=== PATIENT | male | born 1995 | race Caucasian/White ===

== ENCOUNTER 2021-06-15 12:27 | Emergency (ER) | payer MEDICAID, SELFPAY ==
[2021-06-15 12:36] VITALS: BP 124/77; PULSE 92; RESP 18; TEMP 37; O2SAT 97; BMI 21.8
--- NOTE | 2021-06-15 12:55 | ECG_ITS ---
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
[2021-06-15 12:59] VITALS: BP 152/87; PULSE 90; RESP 16; TEMP 36.6; O2SAT 100
[2021-06-15 13:17] LABS: Add Urine Microscopic? NO; Charge for UA Resulting for Rev
[2021-06-15 13:30] LABS: Bilirubin Urine Neg (Negative); Blood Urine Neg (Negative); Glucose Urine UA Norm (Normal); Ketones Urine Negative (Negative); Leukocyte Esterase Urine Negative (Negative); Nitrate Urine Negative (Negative); Protein Urine Neg (Negative); Urine Appearance Clear (CLEAR); Urine Color Yellow (Yellow); Urobilinogen Urine 1 mg/dL (Negative); pH Urine 7 (5-7)
[2021-06-15 13:31] LABS: Amphetamines Screen Urine Negative (Negative); Barbiturates Screen Urine Negative (Negative); Benzodiazepines Screen Urine Negative (Negative); Cocaine Screen Urine Negative (Negative); Opiate Screen Urine Negative (Negative); PCP Screen Urine Negative (Negative); THC Screen Urine Negative (Negative)
[2021-06-15 13:33] LABS: Basophils # 0.1 10^3/uL (0.0-0.1); Eosinophils # 0.2 10^3/uL (0.0-0.8); Eosinophils % 2.5 %; Hematocrit 44.3 % (42.0-52.0); Hemoglobin 15.2 g/dL (11.7-16.6); Lymphocytes # 2.1 10^3/uL (0.8-4.8); Lymphocytes % 28.6 %; Mean Corpuscular HGB Conc 34.3 g/dL (30.0-36.0); Mean Corpuscular Hemoglobin 30.3 pg (28.0-34.0); Mean Corpuscular Volume 88.4 fl (80-94); Mean Platelet Volume 10.5 fL (7.4-10.4); Monocytes # 0.8 10^3/uL (0.2-0.9); Monocytes % 10.5 %; Neutrophils # 4.15 10^3/uL (1.8-7.7); Neutrophils % 57.1 %; Nucleated Red Blood Cells % 0 %; Platelet Count 304 10^3/cmm (130-400); Red Blood Count 5.01 10^6/uL (4.1-5.3); Red Cell Distribution Width 11.9 % (12.1-15.1); White Blood Count 7.3 10^3/uL (4.0-10.0)
[2021-06-15 13:37] LABS: SARS Covid-2 Antigen Negative (Negative)
--- NOTE | 2021-06-15 13:37 | PC.NURSE ---
Spoke with doctor who reports not to give NS bolus, it it held.
--- NOTE | 2021-06-15 13:38 | W.ED.PSYCH ---
HPI - Psych General: Chief Complaint: Psychiatric Symptoms Stated Complaint: MHE: SENT RICARDO/SUICIDE PREVENTION Time Seen by Provider: 06/15/21 12:55 History of Present Illness: HPI Narrative: Patient is a 18-year-old male with no significant medical or mental history. Recently discharged from long term. He is here with a history of suicidal ideations. Cording the patient he spoke to his mother this morning stating that he had been feeling suicidal over the last 4 months. But did not have any plans to harm himself or anyone else today. His mother contacted [facility] and the worker told the mother that if he was actively suicidal he needed to come to the emergency department. So he presented here Patient denies any active suicidal ideation. Is never attempted suicide is not take any drugs for any milled mental illness or other diagnoses. States he has mild ideations but no active plans according to him he thinks that the behavioral health worker was supposed to meet him here and help him get set up with therapy I spoke to the mental health worker who spoke to the mother this morning. She stated that she told the mother the patient needed to come here if he was actively suicidal. According to the mental health worker he is set up to start outpatient therapy the end of this month via his service officer. Again patient does not have any active suicidal or homicidal at thoughts no plan. Has recent fevers chills chest pain nausea vomiting diarrhea altered mental status or syncope Review of Systems General: Reports: 10 or more systems reviewed and unremarkable except in HPI and below Physical Exam Const: COMMON NORMALS: no acute distress, average body habitus and patient oriented x3 HENMT: COMMON NORMALS: normocephalic, atraumatic and hearing grossly normal bilaterally HEAD & SCALP: normocephalic and atraumatic Eye: COMMON NORMALS: Equal, round and reactive pupils present and EOMs intact bilaterally PUPIL: Yes Equal, round and reactive pupils present Resp: COMMON NORMALS: normal respiratory effort Cardio: COMMON NORMALS: regular rate and regular rhythm RATE: regular rate RHYTHM: regular rhythm GI: COMMON NORMALS: Normal to inspection, nondistended, normoactive bowel sounds present Extremity: COMMON NORMALS: normal to inspection and full ROM Neuro: COMMON NORMALS: patient oriented x3, CN's II-XII intact bilaterally, moves all extremities, no focal motor deficits, no sensory deficits noted and gait normal Psych: COMMON NORMALS: mental status grossly normal, Normal thought process present, cooperative, normal affect, speech normal, activity/motor behavior normal, denies hallucinations, denies homicidal ideation and denies suicidal ideation SPEECH: Yes normal speech MOOD & AFFECT: Yes euthymic mood THOUGHT PROCESS: Normal thought process present THOUGHT CONTENT: Yes Normal thought content present, No Suicidality present and No Homicidality present ATTENTION/CONCENTRATION: Yes attention grossly intact and Yes concentration grossly intact MEMORY/COGNITION: Yes memory grossly intact and Yes cognition grossly intact INSIGHT: Good insight present (Psych) JUDGEMENT: Good judgement present (Psych) Skin: COMMON NORMALS: no rashes or lesions noted GENERAL SKIN EXAM: no rashes or lesions noted Course ED course: Spoke to mental health worker. He states that he does have a plan in place for outpatient therapy. She also stated that he could come straight to behavioral health services during business hours to try to get into something sooner. I had a very long conversation with the patient stating that does sound like he does have a good plan in place in my medical opinion at this point he is not a threat to himself via suicide or threat to himself via homicide. Although this could certainly change and I did recommend strongly that if he does feel that he is in acute crisis or has any plans to harm himself needs to present to the emergency department. He did state that he does not have any current plans to harm himself or anybody else. Does not want to be hospitalized and I feel at this point he is appropriate for discharge tickly since we do have a plan in place. Patient has good judgment and insight and once again feel that he is appropriate for discharge Vital Signs: Vital signs: Vital Signs Temperature 98 F 06/15/21 12:59 Pulse Rate 90 06/15/21 12:59 Respiratory Rate 16 06/15/21 12:59 Blood Pressure 152/87 06/15/21 12:59 Pulse Oximetry 100 06/15/21 12:59 MDM - Psych MDM Narrative: Medical decision making narrative: Suicidality, depression, homicidality, Differential Diagnosis: Psych Differential Diagnosis: Likely acute psychosis, suicidal ideation, bipolar disorder, depression and acute anxiety Lab Data: Labs: Lab Results 06/15/21 06/15/21 06/15/21 Range/Units 13:08 13:10 13:10 WBC (4.0-10.0) 10^3/ uL RBC (4.1-5.3) 10^6/u L Hgb (11.7-16.6) g/dL Hct (42.0-52.0) % MCV (80-94) fl MCH (28.0-34.0) pg MCHC (30.0-36.0) g/dL RDW (12.1-15.1) % Plt Count (130-400) 10^3/c mm MPV (7.4-10.4) fL Neut % (Auto) % Lymph % (Auto) % [place] % (Auto) % Eos % (Auto) % Baso % (Auto) % Neut # (Auto) (1.8-7.7) 10^3/u L Lymph # (Auto) (0.8-4.8) 10^3/u L [place] # (Auto) (0.2-0.9) 10^3/u L Eos # (Auto) (0.0-0.8) 10^3/u L Baso # (Auto) (0.0-0.1) 10^3/u L Nucleated RBC % (a uto) % Nucleated RBCs # /100WBC Urine Color Yellow (Yellow) Urine Appearance Clear (CLEAR) Urine pH 7 (5-7) Ur Specific Gravit y 1.010 (1.005-1.030) Urine Protein Neg (Negative) Urine Glucose (UA) Norm (Normal) Urine Ketones Negative (Negative) Urine Blood Neg (Negative) Urine Nitrate Negative (Negative) Urine Bilirubin Neg (Negative) Urine Urobilinogen 1 H (Negative) mg/dL Ur Leukocyte April ase Negative (Negative) Urine Opiates Scre en Negative (Negative) ng/mL Ur Barbiturates Sc reen Negative (Negative) ng/mL Ur Phencyclidine S crn Negative (Negative) ng/mL Ur Amphetamines Sc reen Negative (Negative) ng/mL U Benzodiazepines Scrn Negative (Negative) ng/mL Urine Cocaine Scre en Negative (Negative) ng/mL U Marijuana (THC) Screen Negative (Negative) ng/mL SARS-CoV-2 Ag (Rap id) Negative (Negative) 06/15/21 Range/Units 13:20 WBC 7.3 (4.0-10.0) 10^3/ uL RBC 5.01 (4.1-5.3) 10^6/u L Hgb 15.2 (11.7-16.6) g/dL Hct 44.3 (42.0-52.0) % MCV 88.4 (80-94) fl MCH 30.3 (28.0-34.0) pg MCHC 34.3 (30.0-36.0) g/dL RDW 11.9 L (12.1-15.1) % Plt Count 304 (130-400) 10^3/c mm MPV 10.5 H (7.4-10.4) fL Neut % (Auto) 57.1 % Lymph % (Auto) 28.6 % [place] % (Auto) 10.5 % Eos % (Auto) 2.5 % Baso % (Auto) 1.0 % Neut # (Auto) 4.15 (1.8-7.7) 10^3/u L Lymph # (Auto) 2.1 (0.8-4.8) 10^3/u L [place] # (Auto) 0.8 (0.2-0.9) 10^3/u L Eos # (Auto) 0.2 (0.0-0.8) 10^3/u L Baso # (Auto) 0.1 (0.0-0.1) 10^3/u L Nucleated RBC % (a uto) 0 % Nucleated RBCs # 0.0 /100WBC Urine Color (Yellow) Urine Appearance (CLEAR) Urine pH (5-7) Ur Specific Gravit y (1.005-1.030) Urine Protein (Negative) Urine Glucose (UA) (Normal) Urine Ketones (Negative) Urine Blood (Negative) Urine Nitrate (Negative) Urine Bilirubin (Negative) Urine Urobilinogen (Negative) mg/dL Ur Leukocyte April ase (Negative) Urine Opiates Scre en (Negative) ng/mL Ur Barbiturates Sc reen (Negative) ng/mL Ur Phencyclidine S crn (Negative) ng/mL Ur Amphetamines Sc reen (Negative) ng/mL U Benzodiazepines Scrn (Negative) ng/mL Urine Cocaine Scre en (Negative) ng/mL U Marijuana (THC) Screen (Negative) ng/mL SARS-CoV-2 Ag (Rap id) (Negative) Discharge Plan Discharge Condition: Stable Prescriptions: No Action Tylenol 325 mg Tablet 325 mg PO QID PRN (Reason: Pain) RF: 0 Vitamin C 250 mg Tablet 250 mg PO DAILY RF: 0 Iron (ferrous sulfate) 325 mg (65 mg iron) Tablet 325 mg PO DAILY RF: 0 ibuprofen 200 mg Tablet 200 - 400 mg PO Q6H PRN (Reason: Pain/FEVER) RF: 0 Discharge Orders: Discharge ED (Routine); Ordered 06/15/21 Ordered By: Uli Eckert Discharge Activity: Resume usual activity Patient Instructions: Depression (ED) Activity Restrictions/Additional Instructions: Follow-up with your appointments for mental health services. You can also present yourself to [facility] during business hours. If you find that you have thoughts of harming yourself or others return to the emergency department or call 911 immediately Coding Level of Care Code ED Staff Toxicologist for Hiren Saavedra
[2021-06-15 14:01] LABS: Alanine Aminotransferase 12 U/L (0-41); Alkaline Phosphatase 70 IU/L (40-130); Anion Gap 15.7 (5-19); Aspartate Amino Transferase 16 U/L (0-40); Blood Urea Nitrogen 9 mg/dL (6-20); Calcium 9.4 mg/dL (8.5-10.5); Carbon Dioxide 27 mmol/L (22-29); Chloride 99 mmol/L (98-107); Glomerular Filtration Rate 115.1 mL/min (90-130); Glucose 90 mg/dL (65-115); Osmolality Calculated 284 mOsm/kg (285-295); Potassium 3.7 mmol/L (3.5-5.1); Sodium 138 mmol/L (136-145); Thyroid Stimulating Hormone 1.32 uIU/mL (0.27-4.20); Total Bilirubin 0.3 mg/dL (0.15-1.2)
--- NOTE | 2021-06-15 14:01 | PC.NURSE ---
Patient is discharged at this time and instructed to go to [facility] by Dr Sheth.
[2021-06-15 14:04] LABS: Acetaminophen < 5.0 ug/mL (10-30); Salicylate < 0.3 mg/dL (3-10)
[2021-06-15 14:06] VITALS: BP 143/72; PULSE 80; RESP 14; TEMP 36.6; O2SAT 99
== END 2021-06-15 14:10 ==
PROVIDERS: Emergency Provider Family Medicine
DX: R45.851 Suicidal ideations (principal); Z20.822 Contact with and (suspected) exposure to COVID-19
CPT/HCPCS: 80053; 80306; 80307; 81003; 84443; 85025; 87426; 93005; 99283

== ENCOUNTER 2021-08-12 22:21 | Inpatient (IN) | payer MEDICAID, SELFPAY ==
[2021-08-12 22:32] VITALS: BP 130/79; PULSE 89; RESP 18; TEMP 36.1; O2SAT 96; BMI 22.9
[2021-08-12 22:59] LABS: Add Urine Microscopic? NO; Charge for UA Resulting for Rev
[2021-08-12 23:00] LABS: Basophils # 0.1 10^3/uL (0.0-0.1); Basophils % 0.7 %; Eosinophils # 0.1 10^3/uL (0.0-0.8); Eosinophils % 1.2 %; Hematocrit 45.1 % (42.0-52.0); Hemoglobin 15.3 g/dL (11.7-16.6); Lymphocytes # 2.5 10^3/uL (0.8-4.8); Lymphocytes % 24.3 %; Mean Corpuscular HGB Conc 33.9 g/dL (30.0-36.0); Mean Corpuscular Hemoglobin 30.8 pg (28.0-34.0); Mean Corpuscular Volume 90.7 fl (80-94); Mean Platelet Volume 10.2 fL (7.4-10.4); Monocytes # 0.8 10^3/uL (0.2-0.9); Monocytes % 7.6 %; Neutrophils # 6.72 10^3/uL (1.8-7.7); Neutrophils % 65.7 %; Nucleated Red Blood Cells % 0 %; Platelet Count 343 10^3/cmm (130-400); Red Blood Count 4.97 10^6/uL (4.1-5.3); Red Cell Distribution Width 12.3 % (12.1-15.1); White Blood Count 10.2 10^3/uL (4.0-10.0)
[2021-08-12 23:01] LABS: Bilirubin Urine Neg (Negative); Blood Urine Neg (Negative); Glucose Urine UA Norm (Normal); Ketones Urine Negative (Negative); Leukocyte Esterase Urine Negative (Negative); Nitrate Urine Negative (Negative); Protein Urine Neg (Negative); Urine Appearance Clear (CLEAR); Urine Color Yellow (Yellow); Urobilinogen Urine Norm (Negative); pH Urine 5 (5-7)
[2021-08-12 23:10] LABS: Amphetamines Screen Urine Negative (Negative); Barbiturates Screen Urine Negative (Negative); Benzodiazepines Screen Urine Negative (Negative); Cocaine Screen Urine Negative (Negative); Opiate Screen Urine Negative (Negative); PCP Screen Urine Negative (Negative); THC Screen Urine Positive (Negative)
[2021-08-12 23:25] LABS: Alanine Aminotransferase 14 U/L (0-41); Albumin Level 4.8 g/dL (3.5-5.2); Alcohol Level 153 mg/dL (0-10); Alkaline Phosphatase 77 IU/L (40-130); Anion Gap 18.1 (5-19); Aspartate Amino Transferase 17 U/L (0-40); Blood Urea Nitrogen 11 mg/dL (6-20); Calcium 9.3 mg/dL (8.5-10.5); Carbon Dioxide 22 mmol/L (22-29); Chloride 104 mmol/L (98-107); Globulin 3.3 g/dL (1.3-4.6); Glomerular Filtration Rate 100.5 mL/min (90-130); Glucose 89 mg/dL (65-115); Osmolality Calculated 289 mOsm/kg (285-295); Potassium 4.1 mmol/L (3.5-5.1); Sodium 140 mmol/L (136-145); Total Bilirubin 0.3 mg/dL (0.15-1.2); Total Protein 8.1 g/dL (6.6-8.7)
[2021-08-12 23:30] LABS: Acetaminophen < 5.0 ug/mL (10-30); Salicylate < 0.3 mg/dL (3-10)
--- NOTE | 2021-08-13 00:04 | ED.C_ITS ---
HPI - Psych General: Chief Complaint: Psychiatric Symptoms Stated Complaint: ETOH/ SI Time Seen by Provider: 08/12/21 22:38 History of Present Illness: HPI Narrative: 26-year-old male who was attempted suicide twice in the past he tells me. Earlier today, he was contemplating suicide. He had a knife, and was considering using it on himself. He states that he was drinking this evening, and continued to have suicidal thoughts, so presents for evaluation. MD complaint: suicidal ideation Onset (ago): hour(s) Duration: constant History of same: Yes Relieving factors: none Exacerbating factors: alcohol (Possibly) Context: recent alcohol abuse Associated psychiatric symptoms: depression and suicidal ideation Associated symptoms: Deny auditory hallucinations, visual hallucinations, homicidal ideation or racing thoughts If self harm: admits thoughts of self harm and has plan Review of Systems Const: Denies: fever(s) or chills Eyes: Denies: change in vision Resp: Denies: dyspnea, productive cough or non-productive cough GI: Denies: abdominal pain, nausea or vomiting : Denies: difficulty urinating Neuro: Denies: headache(s) Psych: Denies: visual hallucinations, auditory hallucinations or homicidal ideation PFS ED PFSH: Medical History (Updated 08/13/21 @ 00:21 by Vinny Da Silva DO) Psychiatric care Physical Exam Const: COMMON NORMALS: no acute distress GENERAL APPEARANCE: cooperative, comfortable and well kempt; not ill appearing ORIENTATION/CONSCIOUSNESS: Yes oriented to person, Yes oriented to place and Yes oriented to time HENMT: COMMON NORMALS: normocephalic HEAD & SCALP: normocephalic Chest: COMMONS NORMALS: normal inspection of the chest Resp: COMMON NORMALS: normal respiratory effort, No use of accessory muscles and clear to auscultation bilaterally AUSCULTATION: clear to auscultation bilaterally Cardio: COMMON NORMALS: regular rate and regular rhythm RATE: regular rate RHYTHM: regular rhythm GI: COMMON NORMALS: Normal to inspection, nondistended, normoactive bowel sounds present, Soft to palpation and non-tender PALPATION: Yes Soft to palpation Neuro: SENSORIUM/ORIENTATION: Yes oriented to person, Yes oriented to place and Yes oriented to time Psych: APPEARANCE: Yes well kempt Course Consultations: Consultation #1: sherman Time: 00:21 Vital Signs: Vital signs: Vital Signs Temperature 97.0 F L 08/12/21 22:32 Pulse Rate 89 08/12/21 22:32 Respiratory Rate 18 08/12/21 22:32 Blood Pressure 130/79 08/12/21 22:32 Pulse Oximetry 96 08/12/21 22:32 MDM - Psych MDM Narrative: Medical decision making narrative: Patient mildly intoxicated. Medically stable. Has had suicidal thoughts with a plan. 96-hour paperwork has been filed. He will be admitted to the [facility] Lab Data: Labs: Lab Results 08/12/21 08/12/21 08/12/21 22:45 22:45 22:45 WBC 10.2 10^3/uL H 10 ^3/uL (4.0-10.0) RBC 4.97 10^6/uL 10^6 /uL (4.1-5.3) Hgb 15.3 g/dL g/dL (11.7-16.6) Hct 45.1 % % (42.0-52.0) MCV 90.7 fl fl (80-94) MCH 30.8 pg pg (28.0-34.0) MCHC 33.9 g/dL g/dL (30.0-36.0) RDW 12.3 % % (12.1-15.1) Plt Count 343 10^3/cmm 10^3 /cmm (130-400) MPV 10.2 fL fL (7.4-10.4) Neut % (Auto) 65.7 % % Lymph % (Auto) 24.3 % % [place] % (Auto) 7.6 % % Eos % (Auto) 1.2 % % Baso % (Auto) 0.7 % % Neut # (Auto) 6.72 10^3/uL 10^3 /uL (1.8-7.7) Lymph # (Auto) 2.5 10^3/uL 10^3/ uL (0.8-4.8) [place] # (Auto) 0.8 10^3/uL 10^3/ uL (0.2-0.9) Eos # (Auto) 0.1 10^3/uL 10^3/ uL (0.0-0.8) Baso # (Auto) 0.1 10^3/uL 10^3/ uL (0.0-0.1) Nucleated RBC % (a uto) 0 % % Nucleated RBCs # 0.0 /100WBC /100W BC Sodium 140 mmol/L mmol/L (136-145) Potassium 4.1 mmol/L mmol/L (3.5-5.1) Chloride 104 mmol/L mmol/L (98-107) Carbon Dioxide 22 mmol/L mmol/L (22-29) Anion Gap 18.1 (5-19) BUN 11 mg/dL mg/dL (6-20) Creatinine 0.9 mg/dL mg/dL (0.7-1.2) GFR Calculation 100.5 mL/min mL/m in (90-130) Glucose 89 mg/dL mg/dL (65-115) Calculated Osmolal ity 289 mOsm/kg mOsm/ kg (285-295) Calcium 9.3 mg/dL mg/dL (8.5-10.5) Total Bilirubin 0.3 mg/dL mg/dL (0.15-1.2) AST 17 U/L U/L (0-40) ALT 14 U/L U/L (0-41) Alkaline Phosphata se 77 IU/L IU/L (40-130) Total Protein 8.1 g/dL g/dL (6.6-8.7) Albumin 4.8 g/dL g/dL (3.5-5.2) Globulin 3.3 g/dL g/dL (1.3-4.6) Urine Color Yellow (Yellow) Urine Appearance Clear (CLEAR) Urine pH 5 (5-7) Ur Specific Gravit y 1.020 (1.005-1.030) Urine Protein Neg (Negative) Urine Glucose (UA) Norm (Normal) Urine Ketones Negative (Negative) Urine Blood Neg (Negative) Urine Nitrate Negative (Negative) Urine Bilirubin Neg (Negative) Urine Urobilinogen Norm mg/dL mg/dL (Negative) Ur Leukocyte April ase Negative (Negative) Salicylates < 0.3 mg/dL L mg/ dL (3-10) Urine Opiates Scre en Acetaminophen < 5.0 ug/mL L ug/ mL (10-30) Ur Barbiturates Sc reen Ur Phencyclidine S crn Ur Amphetamines Sc reen U Benzodiazepines Scrn Urine Cocaine Scre en U Marijuana (THC) Screen Ethyl Alcohol 153 mg/dL H mg/dL (0-10) 08/12/21 22:45 WBC RBC Hgb Hct MCV MCH MCHC RDW Plt Count MPV Neut % (Auto) Lymph % (Auto) [place] % (Auto) Eos % (Auto) Baso % (Auto) Neut # (Auto) Lymph # (Auto) [place] # (Auto) Eos # (Auto) Baso # (Auto) Nucleated RBC % (a uto) Nucleated RBCs # Sodium Potassium Chloride Carbon Dioxide Anion Gap BUN Creatinine GFR Calculation Glucose Calculated Osmolal ity Calcium Total Bilirubin AST ALT Alkaline Phosphata se Total Protein Albumin Globulin Urine Color Urine Appearance Urine pH Ur Specific Gravit y Urine Protein Urine Glucose (UA) Urine Ketones Urine Blood Urine Nitrate Urine Bilirubin Urine Urobilinogen Ur Leukocyte April ase Salicylates Urine Opiates Scre en Negative ng/mL ng /mL (Negative) Acetaminophen Ur Barbiturates Sc reen Negative ng/mL ng /mL (Negative) Ur Phencyclidine S crn Negative ng/mL ng /mL (Negative) Ur Amphetamines Sc reen Negative ng/mL ng /mL (Negative) U Benzodiazepines Scrn Negative ng/mL ng /mL (Negative) Urine Cocaine Scre en Negative ng/mL ng /mL (Negative) U Marijuana (THC) Screen Positive ng/mL H ng/mL (Negative) Ethyl Alcohol Discharge Plan Discharge Patient Disposition: Admitted As Inpatient Clinical Impression: Suicidal ideation Condition: Stable Coding Level of Care Code ED Speech And Hearing Clinic Director for Hiren Fwlauryn Exam Detailed
[2021-08-13 01:00] VITALS: BP 138/78; PULSE 88; RESP 16; O2SAT 98
[2021-08-13 01:01] VITALS: BP 138/72; PULSE 88; RESP 16; O2SAT 98
[2021-08-13 02:29] VITALS: BP 121/73; PULSE 76; RESP 17; TEMP 36.7; O2SAT 96
--- NOTE | 2021-08-13 03:20 | PC.NURSE ---
Jasmeet Jimenez is a 26 year old male who lives in the home with his mom, sister and nephew. Patient presents to the ED for suicidal ideation. Patient reports he became suicidal after an argument with his mother and sister. He stated he wanted to kill himself and others with a plan to use a knife. Patient denies current suicidal/homicidal ideation. He denies current hallucinations but reports he has audiovisual hallucinations with substance use. Patient reports a longstanding psychiatric history that includes depression and anxiety. Patient denies medical history. He reports he self medicates with alcohol, cannabis and methamphetamines. Patient is alert and oriented x4. He denies HI/SI/HALLU. His thought process is logical. No skin abnormalities noted on assessment. Patient is pleasant and cooperative during assessment.
[2021-08-13 06:00] VITALS: BP 120/71; PULSE 76; RESP 17; TEMP 36.5; O2SAT 99
[2021-08-13] MEDS: nicotine 21 mg Patch 1 PATCH TRANSDERMA (13:17)
[2021-08-13 14:00] VITALS: BP 144/87; PULSE 61; RESP 17; TEMP 36.8; O2SAT 98
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
[2021-08-13] MEDS: nicotine 2 mg Gum BUCCAL (17:10)
[2021-08-13] MEDS: trazodone 50 mg Tablet PO (20:23)
[2021-08-13] MEDS: hyDROXYzine 25 mg Capsule 50 MG PO (20:23)
[2021-08-13 21:19] VITALS: BP 149/88; PULSE 63; RESP 15; TEMP 36.9; O2SAT 99
--- NOTE | 2021-08-14 01:18 | PC.NURSE ---
Patient up at start of shift. Cooperative, clear thought process, interactive with others. Denies AVH or SI/HI. Did c/o mild anxiety and received PRN Vistaril at 2022. Educated patient on use of PRN Vistaril. Also received PRN Trazadone at 2022 for sleep aid. Both medications effective. No further complaints. Has been in bed resting with eyes closed. No signs of distress noted.
[2021-08-14 06:00] VITALS: BP 137/80; PULSE 81; RESP 15; TEMP 37.1; O2SAT 95; BMI 22.9
[2021-08-14] MEDS: fluoxetine 20 mg Capsule PO (08:29)
--- NOTE | 2021-08-14 12:04 | P.NPUPN_ITS ---
Subjective NPU Subjective: Interval history: Patient presents today reporting that he feels like he is doing better on the Prozac. He reports that he sleeping better and feeling a little more stable. We discussed working with the treatment team in the morning to determine plan for follow-up and ongoing recovery. He reports he is eating fine and denying any significant side effects. Mental Status Exam MSE Comments: This is a well-nourished, well-developed, white male, in hospital scrubs with adequate grooming and eye contact. No abnormal movements, except for mild psychomotor retardation. Cooperative with exam in mild distress. Speech was normal rate and volume. Mood described as a little better; affect congruent. Thought process, organized. Thought content: patient denied any suicidal or homicidal ideation, there were no delusions reported or noted, patient denied any auditory or visual hallucinations. Attention, concentration, and memory appear intact but none were formally tested. He is alert and oriented times three. Insight and judgment appear fair. Impulse control is limited. Vitals/I&O/Wt Last Vital Signs Temp 98.7 F 08/14/21 06:00 Pulse 81 08/14/21 06:00 Resp 15 08/14/21 06:00 BP 137/80 08/14/21 06:00 Pulse Ox 95 08/14/21 06:00 Weight last 48 hrs Weight 72.575 kg Weight 72.575 kg Data NPU : 08/12/21 22:45 08/12/21 22:45 A&P Additional A&P Information (1) Suicidal ideation: (2) PTSD (post-traumatic stress disorder): (3) Depression: (4) Alcohol dependence: Additional A&P Information This is a 26-year-old, white male, with post-traumatic stress disorder, depressive disorder, unspecified, and significant anxiety, who presents reporting that he was becoming more and more distraught and fearful that he might do something harmful, so he presents to the hospital on a 96-hour hold, hoping to get medication and treatment. 1. Continue current medication. 2. Encourage individual, group, and milieu therapy. 3. Continue q-15 minute checks for safety. 4. Recommend sober living treatment at the highest level of care to which the patient is willing to commit. 5. Start patient on CIWA protocol for alcohol withdrawal. Involuntary Hold Information 96 Hour Hold: 96 Hour Involuntary Admission: Yes Attestations NPU Medical Necessity Statement*: Inpatient hospitalization is medically necessary and the clinically appropriate intervention, at this time. We will monitor medications and make changes as indicated. Likely length of stay is 2-4 days. Coding Level of Care Code Acute Post Acute Care Nurse Practitioner for Hiren Saavedra
[2021-08-14] MEDS: nicotine 21 mg Patch 1 PATCH TRANSDERMA (12:13)
[2021-08-14] MEDS: nicotine 2 mg Gum BUCCAL ×2 (13:06→20:28)
[2021-08-14 14:00] VITALS: BP 137/90; PULSE 79; RESP 17; TEMP 37; O2SAT 96
[2021-08-14 20:00] VITALS: BP 129/90; PULSE 68; RESP 16; TEMP 36.8; O2SAT 98
[2021-08-15 06:00] VITALS: BP 110/72; PULSE 91; RESP 17; TEMP 36.8; O2SAT 97
[2021-08-15] MEDS: fluoxetine 20 mg Capsule PO (08:14)
[2021-08-15] MEDS: nicotine 21 mg Patch 1 PATCH TRANSDERMA (09:54)
--- NOTE | 2021-08-15 12:25 | NPU.GN ---
[facility] NeuroPsych Unit Group Topic:Emotions General Mood of Group: Patient come to group on time, dressed appropriately in hospital scrubs. The patient was well groomed with good hygiene. The group discussed emotions and where we feel these emotions in our body. They were able to color coordinate the color to the emotion and color the specific emotion to the body part that they feel these emotions. Everyone shared in the group their specific emotions and where the emotion is felt on their body. There were some new patients in NPU from over the weekend. It was discussed with the group what 96 hour hold and 21 day holds were. We spoke about self admitting. We also spoke about [facility]'s Behavioral Health Care and the importance of after care. Patients were able to ask questions about [facility] Behavioral health and about NPU.
[2021-08-15 14:00] VITALS: BP 119/73; PULSE 91; RESP 17; TEMP 36.8; O2SAT 99
[2021-08-15] MEDS: nicotine 2 mg Gum BUCCAL (17:03)
--- NOTE | 2021-08-15 18:08 | P.NPUPN_ITS ---
Subjective NPU Subjective: Interval history: Patient presents today reporting that he is feeling better. He reports the medication seem to be working and his alcohol withdrawal seem to be resolved. We discussed the circumstances at home and his plan to return to live with his mom. He reports one of the challenges has been that his sister has really struggled with her recovery and he unfortunately has used her as an excuse when she has relapsed for him to follow along. He reports he is eating well and sleeping better and we discussed the plan for discharge in the morning. Mental Status Exam MSE Comments: This is a well-nourished, well-developed, white male, in hospital scrubs with adequate grooming and eye contact. No abnormal movements. Cooperative with exam in no acute distress. Speech was normal rate and volume. Mood described as better; affect congruent. Thought process, organized. Thought content: patient denied any suicidal or homicidal ideation, there were no delusions reported or noted, patient denied any auditory or visual hallucinations. Attention, concentration, and memory appear intact but none were formally tested. He is alert and oriented times three. Insight and judgment appear fair. Impulse control is limited. Vitals/I&O/Wt Last Vital Signs Temp 98.5 F 08/15/21 20:16 Pulse 80 08/15/21 20:16 Resp 17 08/15/21 20:16 BP 145/80 08/15/21 20:16 Pulse Ox 98 08/15/21 20:16 Weight last 48 hrs Weight 72.575 kg Data NPU : 08/12/21 22:45 08/12/21 22:45 A&P Additional A&P Information (1) Suicidal ideation: (2) PTSD (post-traumatic stress disorder): (3) Depression: (4) Alcohol dependence: Additional A&P Information This is a 26-year-old, white male, with post-traumatic stress disorder, depressive disorder, unspecified, and significant anxiety, who presents reporting that he was becoming more and more distraught and fearful that he might do something harmful, so he presents to the hospital on a 96-hour hold, hoping to get medication and treatment. 1. Continue current medication. 2. Encourage individual, group, and milieu therapy. 3. Continue q-15 minute checks for safety. 4. Recommend sober living treatment at the highest level of care to which the patient is willing to commit. Involuntary Hold Information 96 Hour Hold: 96 Hour Involuntary Admission: Yes Attestations NPU Medical Necessity Statement*: Inpatient hospitalization is medically necessary and the clinically appropriate intervention, at this time. We will monitor medications and make changes as indicated. Likely length of stay is 1-3 days. Plan for discharge in the morning. Coding Level of Care Code Acute Punching Machine Operator for Hiren Saavedra
[2021-08-15 20:16] VITALS: BP 145/80; PULSE 80; RESP 17; TEMP 36.9; O2SAT 98
[2021-08-15] MEDS: trazodone 50 mg Tablet PO (20:16)
[2021-08-16 06:00] VITALS: BP 107/58; PULSE 68; RESP 17; TEMP 36.7; O2SAT 99
[2021-08-16] MEDS: fluoxetine 20 mg Capsule PO (08:10)
[2021-08-16] MEDS: nicotine 2 mg Gum BUCCAL (08:42)
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
[2021-08-16 13:50] VITALS: BP 107/58; PULSE 68; RESP 17; TEMP 36.7; O2SAT 99
== END 2021-08-16 14:42 | disposition home or self-care (01) | DRG 881 ==
LOC: ER 08-13 00:21 → NP 08-13 00:42
PROVIDERS: Admitting Provider Psychiatry & Neurology Psychiatry; Emergency Provider Emergency Medicine; Visit Provider Psychiatry & Neurology Psychiatry
DX: F32.A Depression, unspecified (principal); R45.851 Suicidal ideations; F10.20 Alcohol dependence, uncomplicated; F43.10 Post-traumatic stress disorder, unspecified
CPT/HCPCS: 80053; 80306; 80307; 81003; 85025; 97150; 97165; 99285

== ENCOUNTER → 2023-04-16 08:35 | Outpatient (BNVA) | payer BC, SELFPAY | PROVIDERS: Visit Provider Podiatrist Foot & Ankle Surgery | DX: M62.561 Muscle wasting and atrophy, not elsewhere classified, right lower leg (principal); M25.371 Other instability, right ankle; Q66.89 Other specified congenital deformities of feet | CPT/HCPCS: 73130; 73630 ==